=== PATIENT | male | born 1970 | race Caucasian/White ===

== ENCOUNTER 2023-04-16 15:00 | Emergency (ER) | payer MEDICAID ==
--- NOTE | 2023-04-16 15:17 | ED Physician Documentation ---
PD HPI WOUND RECHECK - Stated complaint Stated Complaint: LT LEG PX - Chief complaint Chief Complaint: Wound - Histroy obtained from History obtained from: Patient (53-year-old gentleman with poorly controlled diabetes due to noncompliance presents with a 1 day history of a slightly painful weeping lesion on the posterior left leg without fevers.) PD PAST MEDICAL HISTORY - Present Medications Home Medications: Ambulatory Orders Medication Instructions Recorded Confirmed Sulfamethox/Trimeth 800/160 1 each PO BID #14 tablet 04/16/23 [Bactrim Ds 800/160] cephALEXin [Keflex] 500 mg PO Q6H #28 cap 04/16/23 - Allergies Allergies/Adverse Reactions: Allergies Allergy/AdvReac Type Severity Reaction Status Date / Time No Known Drug Allergies Allergy Verified 04/16/23 15:04 PD ED PE NORMAL - Vitals Vital signs reviewed: Yes - General General: Alert and oriented X 3, No acute distress - Derm Derm: Normal color, Warm and dry, Other (There is a dime sized weeping abscess that is completely open without much cellulitis on the back of the right calf. Cultured during exam.) - Neuro Neuro: Alert and oriented X 3, Normal speech Results - Vitals Vitals: Vital Signs - 24 hr 04/16/23 15:05 Temperature 36.5 C Heart Rate 90 Respiratory 16 Rate Blood Pressure 150/90 H O2 Saturation 99 Oxygen O2 Source Room air Departure - Departure Disposition: 01 Home, Self Care Clinical Impression: Abscess of left lower leg Condition: Good Record reviewed to determine appropriate education?: Yes Instructions: ED Staph Infec Abx Tx Only Prescriptions: Sulfamethox/Trimeth 800/160 [Bactrim Ds 800/160] 1 each PO BID #14 tablet cephALEXin [Keflex] 500 mg PO Q6H #28 cap Comments: We are performing a wound culture, the results should be done in 48-72 hours. If antibiotic change is necessary we will call you. Return if worse in the meantime, especially if you develop increased pain, fevers, cannot keep down the medication. Otherwise follow-up with your physician in approximately 2-3 days.
[2023-04-16] MEDS: SULFAMETH/TRIMETH DS 800/160 MG TABLET PO STA (15:31)
[2023-04-16] MEDS: cephALEXin 250 MG CAPSULE PO STA (15:31)
[2023-04-16 15:40] VITALS: BP 154/88
== END 2023-04-16 15:33 | disposition home or self-care (01) ==
LOC: ED 15:00
DX: L02.416 Cutaneous abscess of left lower limb (principal)
CPT/HCPCS: 87070; 87181; 87205; 99283; A9270